=== PATIENT | female | born 1955 | race Caucasian/White ===

== ENCOUNTER 2019-10-17 21:43 | Inpatient (IN) | payer OTHER ==
[~2019-10-17] VITALS: Ht 167.6 cm; Wt 79.4 kg
[2019-10-17] MEDS ORDERED: MEGESTROL ACETA40 MG (22:02)
[2019-10-17] MEDS ORDERED: GLUMETZA500 MG (22:03)
[2019-10-17] MEDS ORDERED: ENULOSE10 GM/15 M (22:03)
[2019-10-17] MEDS ORDERED: LABETALOL HCL200 MG (22:03)
[2019-10-17] MEDS ORDERED: PLAVIX75 MG (22:04)
[2019-10-17] MEDS ORDERED: AZOR 10-20 MG1 EACH (22:04)
[2019-11-20] MEDS ORDERED: ALPRAZOLAM0.5 MG PO (14:31)
[2019-11-20] MEDS ORDERED: LOSARTAN POTAS100 MG (14:31)
[2019-11-20] MEDS ORDERED: AMLODIPINE BESY10 MG PO (14:31)
[2019-11-20] MEDS ORDERED: ANTIFUNGAL113 GM TOP (14:31)
[2019-11-20] MEDS ORDERED: ATORVASTATIN CA40 MG PO (14:32)
== END 2019-11-26 18:00 | disposition other institution (70) | DRG 393 ==
LOC: ER 21:43 → SURH 10-18 12:25 → MEDI 10-18 12:25 → SURH 11-04 10:26 → ICU 11-09 21:49 → SURG 11-14 20:31 → MEDI 11-17 13:58
PROVIDERS: ADMIT Internal Medicine; ATTEND Internal Medicine
PROC: BW21ZZZ Computerized Tomography (CT Scan) of Abdomen and Pelvis (ICD-10-PCS; 2019-10-18)
PROC: BW21Y0Z Computerized Tomography (CT Scan) of Abdomen and Pelvis using Other Contrast, Unenhanced and Enhanced (ICD-10-PCS; 2019-10-23)
PROC: BW28ZZZ Computerized Tomography (CT Scan) of Head (ICD-10-PCS; 2019-10-23)
PROC: B246ZZZ Ultrasonography of Right and Left Heart (ICD-10-PCS; principal; 2019-10-28)
PROC: 02HV33Z Insertion of Infusion Device into Superior Vena Cava, Percutaneous Approach (ICD-10-PCS; 2019-11-02)
PROC: 0DJD8ZZ Inspection of Lower Intestinal Tract, Via Natural or Artificial Opening Endoscopic (ICD-10-PCS; 2019-11-02)
PROC: B020ZZZ Computerized Tomography (CT Scan) of Brain (ICD-10-PCS; 2019-11-08)
PROC: 0DH67UZ Insertion of Feeding Device into Stomach, Via Natural or Artificial Opening (ICD-10-PCS; 2019-11-19)
PROC: 0DH63UZ Insertion of Feeding Device into Stomach, Percutaneous Approach (ICD-10-PCS; 2019-11-19)
PROC: 3E0G76Z Introduction of Nutritional Substance into Upper GI, Via Natural or Artificial Opening (ICD-10-PCS; 2019-11-19)
PROC: 4A12X4Z Monitoring of Cardiac Electrical Activity, External Approach (ICD-10-PCS; 2019-11-19)
DX: K59.31 Toxic megacolon (principal); I63.512 Cerebral infarction due to unspecified occlusion or stenosis of left middle cerebral artery; E87.2 Acidosis; I69.351 Hemiplegia and hemiparesis following cerebral infarction affecting right dominant side; K56.690 Other partial intestinal obstruction; E46 Unspecified protein-calorie malnutrition; E86.0 Dehydration; I69.320 Aphasia following cerebral infarction; R09.02 Hypoxemia; I10 Essential (primary) hypertension; E78.5 Hyperlipidemia, unspecified; R00.0 Tachycardia, unspecified; E87.6 Hypokalemia; I48.91 Unspecified atrial fibrillation; R13.19 Other dysphagia; I69.391 Dysphagia following cerebral infarction; Z88.8 Allergy status to other drugs, medicaments and biological substances; Z74.01 Bed confinement status; R56.9 Unspecified convulsions

== ENCOUNTER 2020-01-15 17:43 | Inpatient (IN) | payer OTHER ==
[~2020-01-15] VITALS: Ht 157.5 cm; Wt 72.6 kg
[~2020-01-15 17:43] MED LIST: ALPRAZOLAM0.5 MG PO; AMLODIPINE BESY10 MG PO; ANTIFUNGAL113 GM TOP; ATORVASTATIN CA40 MG PO; AZOR 10-20 MG1 EACH; ENULOSE10 GM/15 M; GLUMETZA500 MG; LABETALOL HCL200 MG; LOSARTAN POTAS100 MG; MEGESTROL ACETA40 MG; PLAVIX75 MG
[2020-01-21] MEDS ORDERED: AMLODIPINE BESY10 MG PO (08:59)
[2020-01-21] MEDS ORDERED: GLUMETZA500 MG PO (08:59)
[2020-01-21] MEDS ORDERED: LOSARTAN POTAS100 MG PO (08:59)
[2020-01-21] MEDS ORDERED: PLAVIX75 MG PO (08:59)
[2020-01-21] MEDS ORDERED: INTESTINEX680 M1 PO (09:00)
== END 2020-01-21 12:24 | disposition home health service (06) | DRG 394 ==
LOC: ER 17:43 → SURH 01-17 15:47
PROVIDERS: ADMIT Surgery; ATTEND Surgery
PROC: 3E0336Z Introduction of Nutritional Substance into Peripheral Vein, Percutaneous Approach (ICD-10-PCS; 2020-01-17)
PROC: 8E0ZXY6 Isolation (ICD-10-PCS; 2020-01-17)
PROC: 0DH68UZ Insertion of Feeding Device into Stomach, Via Natural or Artificial Opening Endoscopic (ICD-10-PCS; principal; 2020-01-19)
PROC: 3E0G76Z Introduction of Nutritional Substance into Upper GI, Via Natural or Artificial Opening (ICD-10-PCS; 2020-01-19)
DX: K94.23 Gastrostomy malfunction (principal); N39.0 Urinary tract infection, site not specified; E44.0 Moderate protein-calorie malnutrition; I69.351 Hemiplegia and hemiparesis following cerebral infarction affecting right dominant side; I69.320 Aphasia following cerebral infarction; I69.391 Dysphagia following cerebral infarction; R13.19 Other dysphagia; I10 Essential (primary) hypertension; B96.1 Klebsiella pneumoniae [K. pneumoniae] as the cause of diseases classified elsewhere; E03.8 Other specified hypothyroidism; Z20.828 Contact with and (suspected) exposure to other viral communicable diseases; Z74.01 Bed confinement status

== ENCOUNTER 2020-07-06 13:06 | Emergency (ER) | payer OTHER ==
[~2020-07-06] VITALS: Ht 165.1 cm; Wt 72.6 kg
[~2020-07-06 13:06] MED LIST changes: +GLUMETZA500 MG PO; +INTESTINEX680 M1 PO; +LOSARTAN POTAS100 MG PO; +PLAVIX75 MG PO
[2020-07-06] MEDS ORDERED: LOSARTAN POTASS50 MG PO (13:29)
[2020-07-06] MEDS ORDERED: ATORVASTATIN CA20 MG PO (13:29)
[2020-07-06] MEDS ORDERED: METFORMIN HCL500 M4 PO (13:29)
[2020-07-06] MEDS ORDERED: CLOPIDOGREL BIS75 MG PO (13:29)
[2020-07-06] MEDS ORDERED: LEVETIRACETAM1000 MG PO (13:29)
[2020-07-06] MEDS ORDERED: PANTOPRAZOLE SO40 MG PO (13:30)
== END 2020-07-06 17:41 | disposition home or self-care (01) ==
LOC: ER 13:06
DX: K94.23 Gastrostomy malfunction (principal)

== ENCOUNTER → 2021-04-04 | Outpatient (CLI) | payer OTHER ==
[~2021-04-04] MED LIST changes: +ATORVASTATIN CA20 MG PO; +CLOPIDOGREL BIS75 MG PO; +LEVETIRACETAM1000 MG PO; +LOSARTAN POTASS50 MG PO; +METFORMIN HCL500 M4 PO; +PANTOPRAZOLE SO40 MG PO
== END | disposition home or self-care (01) ==
LOC: RX STUDY 09:27
PROVIDERS: ATTEND Surgery
DX: R13.19 Other dysphagia (principal); K94.23 Gastrostomy malfunction

== ENCOUNTER 2021-09-06 16:11 | Inpatient (IN) | payer OTHER ==
[~2021-09-06] VITALS: Ht 167.6 cm; Wt 111.1 kg
[2021-09-06] MEDS ORDERED: COZAAR25 MG (16:28)
[2021-09-06] MEDS ORDERED: TENORMIN25 MG (16:28)
--- NOTE | 2021-09-06 16:28 | NUR ---
SE RECIBE PTE ALERTA LA CUAL NO VERBALIZA EN COMPANIA DE FAMILIAR Y PARAMEDICOS LA CUAL INDICA PTE DESDE HACE AMADO SEMANA PRESENTA DISTENCION ABDOMINAL Y QUE HACE DOS LABOY PRESENTA PROBLEMAS CON LA GASTROSTOMIA.
--- NOTE | 2021-09-06 17:33 | NUR ---
EVALUA PTE. SE EDUCA A FAMILIAR SOBRE [place] MEDICO. FAMILIAR REFIERE COMPRENDER. SE REALIZAN MUESTRAS DE LABORATORIO BAJO MEDIDAS ASEPTICAS.
--- NOTE | 2021-09-06 18:07 | NUR ---
SE CATATERIZA A PTE BAJO MEDIDAS ESTERILES Y SE COLECTAN MUESTRAS DE ORINA. SE ADMINISTRA GASTROVIEW PARA CT.
--- NOTE | 2021-09-06 23:14 | NUR ---
SE RECIBE PACIENTE FEMENINA, ALERTA, NO VERBALIZA. ACOSTADA EN FELIX, BARANDAS ELEVADAS POR SEGURIDAD. SE LE ORIENTA A FAMILIAR SOBRE CONTINUIDADA DE TRATAMIENTO, REFIERE ENTENDER. SE OBSERVA ABDOMEN CON LEVE DISTENCION, DEPRESIBLE AL TACTO. PENDIENTE LECTURA DE CT. SE MANTIENE BAJO OBSERVACION POR CAMBIOS.
--- NOTE | 2021-09-06 23:46 | NUR ---
PACIENTE CONSULTADO CON DR.NICOLAS VILLANUEVA, DRA. CONRAD LO NOTIFICA.
--- NOTE | 2021-09-07 07:14 | NUR ---
PTE ALERTA,ESTABLE Y ORIENTADA.SE EDUCA SOBRE EL TRATAMIENTO QUE RECIBIRA EN EL HOSPTIAL Y ESTA REFIERE ENTENDER.SE MANTIENE EN LA ESPERA DEL
--- NOTE | 2021-09-07 09:16 | NUR ---
PT DE 65 ANOS DE EDAD ALERTA Y ORIENTADA X3. SE CHRISTINA BP Y PT OBTIENE 140/80 SE CHRISTINA DXT Y PT OBTIENE 191MG/DL.
== END 2021-09-17 20:12 | disposition home or self-care (01) | DRG 394 ==
LOC: ER 16:11 → MEDI 09-07 16:03
PROVIDERS: ADMIT Internal Medicine; ATTEND Internal Medicine
PROC: BW21YZZ Computerized Tomography (CT Scan) of Abdomen and Pelvis using Other Contrast (ICD-10-PCS; principal; 2021-09-15)
DX: K94.23 Gastrostomy malfunction (principal); K56.7 Ileus, unspecified; I69.320 Aphasia following cerebral infarction; R13.19 Other dysphagia; R14.0 Abdominal distension (gaseous); E11.9 Type 2 diabetes mellitus without complications; Z74.01 Bed confinement status; K59.09 Other constipation; Z79.4 Long term (current) use of insulin; Z20.822 Contact with and (suspected) exposure to COVID-19; I10 Essential (primary) hypertension

== ENCOUNTER 2022-08-25 11:09 | Emergency (ER) | payer OTHER ==
[~2022-08-25] VITALS: Ht 157.5 cm; Wt 90.7 kg
[~2022-08-25 11:09] MED LIST changes: +COZAAR25 MG; +TENORMIN25 MG
== END 2022-08-25 13:51 | disposition home or self-care (01) ==
LOC: ER 11:09
DX: T85.528A Displacement of other gastrointestinal prosthetic devices, implants and grafts, initial encounter (principal); X58.XXXA Exposure to other specified factors, initial encounter; Y93.89 Activity, other specified; Y92.129 Unspecified place in nursing home as the place of occurrence of the external cause; Y99.9 Unspecified external cause status; E11.9 Type 2 diabetes mellitus without complications; Z79.84 Long term (current) use of oral hypoglycemic drugs; I10 Essential (primary) hypertension; Z88.6 Allergy status to analgesic agent

== ENCOUNTER 2022-12-30 13:16 | Emergency (ER) | payer OTHER ==
[~2022-12-30] VITALS: Ht 165.1 cm; Wt 122.5 kg
== END 2022-12-31 04:35 | disposition home or self-care (01) ==
LOC: ER 13:16
DX: K56.41 Fecal impaction (principal); I67.9 Cerebrovascular disease, unspecified; R33.9 Retention of urine, unspecified; R14.0 Abdominal distension (gaseous); Z88.6 Allergy status to analgesic agent

== ENCOUNTER 2025-01-19 21:29 | Inpatient (IN) | payer OTHER ==
[~2025-01-19] VITALS: Ht 167.6 cm; Wt 90.7 kg
[2025-01-20 01:27] LABS: BASO % 0.3 % (0.1-1.2); EOS # 0.16 (0.04-0.54); EOS % 1.6 % (0.7-7.0); LYMPH # 2.33 (1.18-3.74); LYMPH % 23.9 % (19.3-53.1); MEAN PLATELET VOLUME 13.30 fl (9.4-12.4); MONO # 0.93 (0.24-0.82); MONO % 9.5 % (4.7-12.5); NEUT # 6.29 (1.56-6.13); NEUT % 64.5 % (34.0-71.1); RED CELL DISTRIBUTION WIDTH 14.8 % (11.6-14.4)
[2025-01-20 01:42] LABS: URINE APPEARANCE Clear; URINE BILIRRUBIN Negative (NEGATIVE); URINE BLOOD Negative; URINE COLOR Yellow; URINE GLUCOSE Negative (NEGATIVE); URINE KETONE Negative (NEGATIVE); URINE LEUKOCYTE Negative; URINE NITRATE Negative; URINE PROTEIN Negative (NEGATIVE); URINE UROBILINOGEN 1.0 E.U./dl
[2025-01-20 01:46] LABS: URINE EPITHELIAL CELLS 1.6 uL (0.0-38.8); URINE RBC 3.6 uL (0.0-20.8); URINE WBC 2.6 uL (0.0-23.2)
[2025-01-20 01:53] LABS: URINE BACTERIA 3.6 uL (0.0-1933); URINE CAST 0.00 uL (0.0-1.40)
[2025-01-20 02:16] LABS: ALT/SGPT 22.0 U/L (12-78); AST/SGOT 13.0 U/L (15-37); BILIRUBIN TOTAL 0.3 mg/dL (0.3-1.2); BUN CREA RATIO 28.0 (7.0-25.0); CREATININE SERUM 0.54 mg/dL (0.55-1.02); GFR 112.61; GLOBULINA 4.1 G/DL (2.4-3.5); GLUCOSE FASTING 130.0 mg/dL (65-100); OSMOLALITY SERUM 288.0 MOSM/KG (275-295)
[2025-01-20] MEDS ORDERED: SODIUM CHLORIDE 0.45 % 1,000 ML IV STA (05:21)
[2025-01-20] MEDS ORDERED: PIPERACILLIN/TAZOBACTAM SODIUM 3.375 GM VIAL IV ONE (12:45)
[2025-01-20] MEDS ORDERED: FAMOTIDINE20 MG PO (17:25)
[2025-01-20] MEDS ORDERED: ENULOSE10 GM/15 M PO (17:26)
[2025-01-20] MEDS ORDERED: 0.9 % SODIUM CHLORIDE 1,000 ML IV SCH (19:15)
[2025-01-20] MEDS ORDERED: PIPERACILLIN/TAZOBACTAM SODIUM 3.375 GM in 0.9 % SODIUM CHLORIDE 100 ML IV SCH (19:21)
[2025-01-20] MEDS ORDERED: FAMOTIDINE/PF 20 MG in 0.9 % SODIUM CHLORIDE 8 ML IV PUSH SCH (19:22)
[2025-01-20] MEDS ORDERED: LevETIRAcetam 500 MG TAB. PO SCH (19:22)
[2025-01-20] MEDS ORDERED: DEXTROSE 50 % IN WATER 0.5 G/ML VIAL IV PRN (19:30)
[2025-01-20] MEDS ORDERED: MORPHINE SULFATE 2 MG/ML SYRINGE IV PRN (19:30)
[2025-01-20] MEDS ORDERED: INSULIN LISPRO 1,000 UNIT/10 ML UNITS SUBCUTANEO PRN (19:30)
[2025-01-20] MEDS ORDERED: ACETAMINOPHEN 500 MG GEL..CAP PO PRN (19:30)
[2025-01-20] MEDS ORDERED: ONDANSETRON HCL 4 MG in 0.9 % SODIUM CHLORIDE 50 ML IV PRN (19:30)
[2025-01-20 20:18] LABS: INR < 0.93
[2025-01-20 22:20] VITALS: BP 189/65
[2025-01-21 00:46] VITALS: BP 137/85; O2SAT 97
[2025-01-21 06:50] LABS: URINE APPEARANCE Clear; URINE BILIRRUBIN Negative (NEGATIVE); URINE BLOOD Small; URINE COLOR Yellow; URINE GLUCOSE Negative (NEGATIVE); URINE KETONE Trace (NEGATIVE); URINE LEUKOCYTE Moderate; URINE NITRATE Negative; URINE PROTEIN 30 (NEGATIVE); URINE UROBILINOGEN 1.0 E.U./dl
[2025-01-21 06:52] LABS: URINE BACTERIA 119.9 uL (0.0-1933); URINE EPITHELIAL CELLS 4.6 uL (0.0-38.8); URINE RBC 97.3 uL (0.0-20.8); URINE WBC 41.6 uL (0.0-23.2)
[2025-01-21 07:28] LABS: URINE CAST 0.58 uL (0.0-1.40)
[2025-01-21 08:10] VITALS: BP 130/80; O2SAT 96
[2025-01-21] MEDS ORDERED: LOSARTAN POTASSIUM 25 MG TABLET PO SCH (09:00)
[2025-01-21] MEDS ORDERED: ATORVASTATIN CALCIUM 20 MG TABLET PO SCH (09:00)
[2025-01-21] MEDS ORDERED: AMLODIPINE BESYLATE 10 MG TABLET PO SCH (09:00)
[2025-01-21] MEDS ORDERED: POLYETHYLENE GLYCOL 3350 238 GM POWDER PO ONE (17:00)
[2025-01-21 18:35] VITALS: BP 122/75
[2025-01-22 00:37] VITALS: BP 148/82
[2025-01-22 08:55] VITALS: BP 166/77; O2SAT 98
[2025-01-22 12:03] LABS: ob POSITIVE (NEGATIVE)
[2025-01-22] MEDS ORDERED: MIDAZOLAM HCL 2 MG/2 ML VIAL IV ONE (13:15)
[2025-01-22] MEDS ORDERED: fentaNYL CITRATE 50 MCG/ML AMPUL IV ONE (13:15)
[2025-01-22 14:52] LABS: BASO % 0.4 % (0.1-1.2); EOS # 0.13 (0.04-0.54); EOS % 1.9 % (0.7-7.0); LYMPH # 1.70 (1.18-3.74); LYMPH % 24.5 % (19.3-53.1); MEAN PLATELET VOLUME 13.30 fl (9.4-12.4); MONO # 0.60 (0.24-0.82); MONO % 8.7 % (4.7-12.5); NEUT # 4.45 (1.56-6.13); NEUT % 64.2 % (34.0-71.1); RED CELL DISTRIBUTION WIDTH 15.0 % (11.6-14.4)
[2025-01-22 15:23] LABS: ALT/SGPT 22.0 U/L (12-78); AST/SGOT 24.0 U/L (15-37); BILIRUBIN TOTAL 0.46 mg/dL (0.3-1.2); BUN CREA RATIO 22.0 (7.0-25.0); CREATININE SERUM 0.41 mg/dL (0.55-1.02); GFR 154.73; GLOBULINA 4.0 G/DL (2.4-3.5); GLUCOSE FASTING 119.0 mg/dL (65-100); OSMOLALITY SERUM 283.0 MOSM/KG (275-295)
[2025-01-22 16:53] VITALS: BP 160/85; O2SAT 100
[2025-01-23 01:03] VITALS: BP 140/82; O2SAT 97
[2025-01-23 09:17] VITALS: BP 159/82; O2SAT 97
[2025-01-23 17:26] VITALS: BP 121/79; O2SAT 97
[2025-01-23] MEDS ORDERED: FAMOTIDINE/PF 20 MG in 0.9 % SODIUM CHLORIDE 8 ML IV PUSH SCH (21:00)
[2025-01-24 02:04] VITALS: BP 160/68
[2025-01-24 07:17] LABS: BASO % 0.6 % (0.1-1.2); EOS # 0.12 (0.04-0.54); EOS % 1.8 % (0.7-7.0); LYMPH # 2.15 (1.18-3.74); LYMPH % 33.0 % (19.3-53.1); MEAN PLATELET VOLUME 13.10 fl (9.4-12.4); MONO # 0.70 (0.24-0.82); MONO % 10.7 % (4.7-12.5); NEUT # 3.49 (1.56-6.13); NEUT % 53.6 % (34.0-71.1); RED CELL DISTRIBUTION WIDTH 14.8 % (11.6-14.4)
[2025-01-24 07:40] LABS: ALT/SGPT 20.0 U/L (12-78); AST/SGOT 21.0 U/L (15-37); BILIRUBIN TOTAL 0.48 mg/dL (0.3-1.2); BUN CREA RATIO 23.0 (7.0-25.0); CREATININE SERUM 0.39 mg/dL (0.55-1.02); GFR 163.93; GLOBULINA 3.5 G/DL (2.4-3.5); GLUCOSE FASTING 142.0 mg/dL (65-100); OSMOLALITY SERUM 290.0 MOSM/KG (275-295)
[2025-01-24 08:27] VITALS: BP 143/80
[2025-01-24 17:47] VITALS: BP 113/69; O2SAT 98
[2025-01-24] MEDS ORDERED: SIMETHICONE 125 MG CAPSULE PO SCH (18:00)
[2025-01-25 02:00] VITALS: BP 131/78; O2SAT 100
[2025-01-25 08:36] VITALS: BP 140/83; O2SAT 98
[2025-01-25 18:19] VITALS: BP 139/83; O2SAT 100
[2025-01-26 02:09] VITALS: BP 158/80; O2SAT 96
[2025-01-26 09:46] VITALS: BP 150/84; O2SAT 100
[2025-01-26 16:22] VITALS: BP 152/78
== END 2025-01-26 19:52 | disposition home or self-care (01) | DRG 345 ==
LOC: ER 21:29 → MEDJ 01-20 20:15
PROVIDERS: General Practice; ADMIT Internal Medicine; ATTEND Internal Medicine
PROC: BW21ZZZ Computerized Tomography (CT Scan) of Abdomen and Pelvis (ICD-10-PCS; 2025-01-20)
PROC: 0D9P8ZZ Drainage of Rectum, Via Natural or Artificial Opening Endoscopic (ICD-10-PCS; principal; 2025-01-22)
PROC: 0D7P8ZZ Dilation of Rectum, Via Natural or Artificial Opening Endoscopic (ICD-10-PCS; 2025-01-22)
PROC: 0DJD8ZZ Inspection of Lower Intestinal Tract, Via Natural or Artificial Opening Endoscopic (ICD-10-PCS; 2025-01-22)
DX: K59.00 Constipation, unspecified (principal); K56.609 Unspecified intestinal obstruction, unspecified as to partial versus complete obstruction; K80.20 Calculus of gallbladder without cholecystitis without obstruction; I10 Essential (primary) hypertension; E11.9 Type 2 diabetes mellitus without complications; E78.5 Hyperlipidemia, unspecified; Z74.01 Bed confinement status; Z88.6 Allergy status to analgesic agent; Z79.84 Long term (current) use of oral hypoglycemic drugs

== ENCOUNTER 2025-05-14 14:52 | Emergency (ER) | payer OTHER ==
[~2025-05-14] VITALS: Ht 170.2 cm; Wt 78.9 kg
[~2025-05-14 14:52] MED LIST changes: +ENULOSE10 GM/15 M PO; +FAMOTIDINE20 MG PO
[2025-05-14] MEDS ORDERED: FAMOTIDINE/PF 20 MG in 0.9 % SODIUM CHLORIDE 8 ML IV PUSH ONE (16:15)
[2025-05-14] MEDS ORDERED: 0.9 % SODIUM CHLORIDE 1,000 ML IV SCH (16:15)
[2025-05-14] MEDS ORDERED: ONDANSETRON HCL 4 MG in 0.9 % SODIUM CHLORIDE 50 ML IV ONE (16:15)
[2025-05-14 17:51] LABS: BASO % 0.3 % (0.1-1.2); EOS # 0.12 (0.04-0.54); EOS % 1.3 % (0.7-7.0); LYMPH # 2.08 (1.18-3.74); LYMPH % 23.3 % (19.3-53.1); MEAN PLATELET VOLUME 12.90 fl (9.4-12.4); MONO # 0.74 (0.24-0.82); MONO % 8.3 % (4.7-12.5); NEUT # 5.95 (1.56-6.13); NEUT % 66.7 % (34.0-71.1); RED CELL DISTRIBUTION WIDTH 15.3 % (11.6-14.4)
[2025-05-14 18:06] LABS: ERYTHROCYTE SEDIMENTATION RATE 85 mm/hr (0-30)
[2025-05-14 18:14] LABS: INR 0.96
[2025-05-14 18:19] LABS: ALT/SGPT 23.0 U/L (12-78); AST/SGOT 37.0 U/L (15-37); BILIRUBIN TOTAL 0.53 mg/dL (0.3-1.2); BUN CREA RATIO 26.0 (7.0-25.0); CREATININE SERUM 0.54 mg/dL (0.55-1.02); GFR 112.61; GLOBULINA 4.5 G/DL (2.4-3.5); GLUCOSE FASTING 154.0 mg/dL (65-100); OSMOLALITY SERUM 281.0 MOSM/KG (275-295)
[2025-05-14 19:51] LABS: URINE APPEARANCE Cloudy; URINE BILIRRUBIN Negative (NEGATIVE); URINE BLOOD Negative; URINE COLOR Yellow; URINE GLUCOSE Negative (NEGATIVE); URINE KETONE Trace (NEGATIVE); URINE LEUKOCYTE Moderate; URINE NITRATE Positive; URINE PROTEIN Negative (NEGATIVE); URINE UROBILINOGEN 1.0 E.U./dl
[2025-05-14 19:56] LABS: URINE EPITHELIAL CELLS 5.8 uL (0.0-38.8); URINE RBC 10.0 uL (0.0-20.8); URINE WBC 411.1 uL (0.0-23.2)
[2025-05-14 20:00] LABS: URINE BACTERIA > 9821.5 uL (0.0-1933); URINE CAST 0.99 uL (0.0-1.40)
[2025-05-14] MEDS ORDERED: CEFTRIAXONE SODIUM 1,000 MG in DEXTROSE 5 % IN WATER 100 ML IV ONE (20:45)
[2025-05-14] MEDS ORDERED: CEFTRIAXONE SODIUM 1,000 MG VIAL ONE (20:49)
[2025-05-14] MEDS ORDERED: CIPRO500 MG PO (23:04)
[2025-05-14] MEDS ORDERED: PYRIDIUM DS200 MG PO (23:04)
[2025-05-14] MEDS ORDERED: TAMS0.4C PO (23:04)
== END 2025-05-15 02:28 | disposition home or self-care (01) ==
LOC: ER 14:52
PROVIDERS: General Practice
DX: N39.0 Urinary tract infection, site not specified (principal); K59.09 Other constipation; E11.9 Type 2 diabetes mellitus without complications; Z79.84 Long term (current) use of oral hypoglycemic drugs; Z88.6 Allergy status to analgesic agent
CPT/HCPCS: 36415; 51702; 74176; 93005; 96365; 96366; 99284; J0696; J2405; J3490; J7030